=== PATIENT | female | born 1965 | race Caucasian/White ===

== ENCOUNTER 2023-06-19 09:51 | Outpatient (CLI) | payer OTHER, SELFPAY ==
--- NOTE | ~2023-06-19 | XR_ITS ---
XR shoulder RT min 2V 06/19/2023 10:33 Indication: Right shoulder pain for 3 months Procedure: 3 views right shoulder Comparison: No prior studies for comparison. Findings: There is polyarticular osteoarthritis, most advanced at the acromioclavicular joint. Normal mineralization. No fracture or traumatic malalignment. Impression: 1: Polyarticular osteoarthritis of the right shoulder. Reviewed, dictated and finalized at location A. Impression: 1: Polyarticular osteoarthritis of the right shoulder.
== END 2023-06-19 09:52 | disposition home or self-care (01) ==
LOC: CHSIMG 09:56
PROVIDERS: PCP Family Medicine; Visit Provider Nurse Practitioner Family
DX: M25.511 Pain in right shoulder (principal); M19.011 Primary osteoarthritis, right shoulder
CPT/HCPCS: 73030

== ENCOUNTER 2023-07-10 07:02 | Outpatient (CLI) | payer OTHER, SELFPAY ==
--- NOTE | ~2023-07-10 | MR_ITS ---
EXAMINATION: MR brain/brain stem wo/w con DATE: 07/10/2023 09:07 INDICATION: Visual changes TECHNIQUE: Magnetic resonance imaging (MRI) of the brain and brainstem was performed without and with 20 mL Multihance intravenous contrast. Sequences included sagittal and axial T1-weighted SE, axial d iffusion-weighted FS SE, axial 3D SWAN, axial T2-weighted FLAIR, and axial T2-weighted FSE. Postcontr ast axial and coronal T1-weighted SE was obtained. Apparent diffusion coefficient (ADC) maps were cre ated. COMPARISON: None. FINDINGS: There are no areas of restricted diffusion to suggest acute infarction. There is a 1.3 x 1.2 x 1.1 cm T1 and T2 hypointense enhancing extra-axial mass along the inferior margin of the left tentorium whi ch exerts mass effect upon the immediately adjacent cephalad margin of the left cerebellar hemisphere . The decreased signal intensity on the T1 and T2-weighted images suggest possible calcification in t he setting of meningioma. No other abnormal masses identified. There are a few scattered small foci o f nonspecific increased T2-weighted signal intensity in the cerebral white matter, predominantly invo lving the deep and periventricular white matter. There are no intraparenchymal signal abnormalities s een on the other pulse sequences. The ventricles are symmetric and normal in size. There are no abnor mal extra-axial fluid collections. Flow voids are seen in the cerebral arteries on the T2-weighted se quences consistent with their expected patency. Mild mucoperiosteal thickening in the bilateral ethmo id sinuses. Visualized orbits and soft tissues are unremarkable. IMPRESSION: 1. 1.3 cm enhancing extra-axial mass along the inferior margin of the left side of the tentorium most likely representing a meningioma. 2. A few scattered small foci of nonspecific periventricular predominant white matter T2 hyperintensi ty most likely sequela of chronic small vessel ischemic disease. No other acute intracranial process. Reviewed, dictated and finalized at location A. IMPRESSION: 1. 1.3 cm enhancing extra-axial mass along the inferior margin of the left side of the tentorium most likely representing a meningioma. 2. A few scattered small foci of nonspecific periventricular predominant white matter T2 hyperintensity most likely sequela of chronic small vessel ischemic d isease. No other acute intracranial process.
== END 2023-07-10 07:03 | disposition home or self-care (01) ==
LOC: CHSIMG 07:03
PROVIDERS: PCP Family Medicine; Visit Provider Family Medicine
DX: H53.9 Unspecified visual disturbance (principal); G93.89 Other specified disorders of brain
CPT/HCPCS: 70553; A9577